=== PATIENT | male | born 2000 | race Caucasian/White ===

== ENCOUNTER 2021-05-14 20:57 | Emergency (ER) | payer SELFPAY ==
[~2021-05-14] VITALS: Ht 167.6 cm; Wt 70.0 kg
[2021-05-14 20:58] VITALS: BP 120/93
== END 2021-05-14 21:35 ==
LOC: ER 20:57
DX: F10.129 Alcohol abuse with intoxication, unspecified (principal); Y90.0 Blood alcohol level of less than 20 mg/100 ml; F12.10 Cannabis abuse, uncomplicated
CPT/HCPCS: 99283